=== PATIENT | male | born 1955 | race Caucasian/White ===

== ENCOUNTER 2024-11-01 16:55 | Inpatient (IN) | payer OTHER ==
[2024-11-01 19:50] VITALS: BMI 27.3
[2024-11-01] MEDS ORDERED: Ondansetron PF 4 MG/2 ML Vial IVP PRN (20:42)
[2024-11-01] MEDS ORDERED: Calcium Carbonate 500 MG ChewTAB PO PRN (20:42)
[2024-11-01] MEDS ORDERED: Ipratropium/Albuterol 3 ML NEB NEB PRN (20:44)
[2024-11-01 22:25] LABS: Hematocrit 34.9 % (42.0-52.0); Hemoglobin 11.8 g/dL (14.0-18.0); Mean Corpuscular HGB CONC 33.8 g/dL (32.0-36.0); Mean Corpuscular Hemoglobin 29.8 pg (27.0-31.0); Mean Corpuscular Volume 88.1 fL (78.0-98.0); Mean Platelet Volume 9.8 fL (7.4-10.4); Platelet Count 155 10x3/uL (130-400); RBC Distribution Width 13.6 % (11.5-14.5); Red Blood Cell (RBC) Count 3.96 mill/uL (4.70-6.10)
[2024-11-01] MEDS: Ondansetron ODT 4 MG TAB PO PRN (22:28)
[2024-11-01] MEDS: Famotidine/PF 20 mg/2ml Vial SLOW IVP SCH (22:28)
[2024-11-01] MEDS: Famotidine 20 MG TAB PO SCH (22:28)
[2024-11-01] MEDS: Doxycycline 100 MG CAP PO SCH (22:28)
[2024-11-01] MEDS ORDERED: Nicotine 14 MG PATCH TD PRN (22:29)
[2024-11-01 22:42] LABS: Anion Gap 13 mmol/L (10-20); BUN (Urea Nitrogen) 40 mg/dL (8.4-25.7); Calc. Creatinine Clearance 55 mL/min (70-130); Calcium 7.8 mg/dL (7.8-10.44); Carbon Dioxide 21 mmol/L (23-31); Chloride 107 mmol/L (98-107); Estimated GFR 54; Glucose 111 mg/dL (80-115); Potassium 3.8 mmol/L (3.5-5.1); Sodium 137 mmol/L (136-145)
[2024-11-01 22:44] LABS: Band 22 % (5-11); Hypochromia SLIGHT = 6-15 cells (100X) (0-5/hpf); Lymphocytes 2 % (21-51); Monocytes 1 % (0-10); Neutrophil 73 % (42-75); Plasma Cells 0 % (0-0); Platelet Adequacy Comment Appears Adequate; Reactive Lymphocytes 2 % (0-10); Total Cell Count 100
[2024-11-02 04:57] LABS: #Basophils 0.04 10x3/uL (0.0-0.2); %Basophils 0.3 % (0.0-1.0); %Eosinophils 0.5 % (0.0-10.0); %Lymphocytes 3.1 % (21.0-51.0); %Monocytes 4.1 % (0.0-10.0); %Neutrophils 89.1 % (42.0-75.0); Hematocrit 33.9 % (42.0-52.0); Hemoglobin 11.5 g/dL (14.0-18.0); Mean Corpuscular HGB CONC 33.9 g/dL (32.0-36.0); Mean Corpuscular Hemoglobin 29.8 pg (27.0-31.0); Mean Corpuscular Volume 87.8 fL (78.0-98.0); Mean Platelet Volume 9.7 fL (7.4-10.4); Platelet Count 142 10x3/uL (130-400); RBC Distribution Width 13.6 % (11.5-14.5); Red Blood Cell (RBC) Count 3.86 mill/uL (4.70-6.10)
[2024-11-02 05:17] LABS: ALT (SGPT) 20 U/L (Less than 45); AST (SGOT) 18 U/L (11-34); Albumin 2.8 g/dL (3.1-4.5); Alkaline Phosphatase 62 U/L (40-110); Anion Gap 12 mmol/L (10-20); BUN (Urea Nitrogen) 30 mg/dL (8.4-25.7); Bilirubin, Total 0.6 mg/dL (0.3-1.2); Calc. Creatinine Clearance 71 mL/min (70-130); Calcium 7.8 mg/dL (7.8-10.44); Carbon Dioxide 22 mmol/L (23-31); Chloride 107 mmol/L (98-107); Estimated GFR 74; Globulin 3.3 g/dL (2.4-3.5); Glucose 111 mg/dL (80-115); Potassium 3.9 mmol/L (3.5-5.1); Protein, Total 6.1 g/dL (5.8-8.1); Sodium 137 mmol/L (136-145)
[2024-11-02] MEDS: cefTRIAXone\\ROCEPHIN 1 GM in Sodium Chloride 0.9% 100 ML IVPB SCH (09:33)
[2024-11-02] MEDS: FLU (Fluad Triv) TS24-25 (65UP)/MF59C/PF 45 MCG/0.5 ML Syringe IM ONE (09:45)
[2024-11-02 10:23] VITALS: BMI 27.3
[2024-11-02] MEDS: predniSONE 20 MG TAB PO SCH (17:21)
[2024-11-02] MEDS: Sodium Chloride 0.9% 1,000 ML IV SCH (17:22)
[2024-11-03 04:22] LABS: #Basophils Less than 0.03 10x3/uL (0.0-0.2); #Eosinophils Less than 0.03 10x3/uL (0.0-0.7); %Basophils 0.2 % (0.0-1.0); %Lymphocytes 4.5 % (21.0-51.0); %Monocytes 3.3 % (0.0-10.0); %Neutrophils 91.3 % (42.0-75.0); Hematocrit 36.7 % (42.0-52.0); Hemoglobin 12.4 g/dL (14.0-18.0); Mean Corpuscular HGB CONC 33.8 g/dL (32.0-36.0); Mean Corpuscular Hemoglobin 29.5 pg (27.0-31.0); Mean Corpuscular Volume 87.4 fL (78.0-98.0); Mean Platelet Volume 10.1 fL (7.4-10.4); Platelet Count 193 10x3/uL (130-400); RBC Distribution Width 13.4 % (11.5-14.5)
[2024-11-03 05:22] LABS: Lactic Acid 2.43 mmol/L (0.50-2.20)
[2024-11-03 05:44] LABS: Anion Gap 16 mmol/L (10-20); BUN (Urea Nitrogen) 18 mg/dL (8.4-25.7); Calc. Creatinine Clearance 89 mL/min (70-130); Calcium 8.3 mg/dL (7.8-10.44); Carbon Dioxide 21 mmol/L (23-31); Chloride 107 mmol/L (98-107); Estimated GFR 95; Glucose 168 mg/dL (80-115); Sodium 140 mmol/L (136-145)
[2024-11-03] MEDS: Famotidine 20 MG TAB PO SCH (09:29)
[2024-11-03] MEDS: predniSONE 20 MG TAB PO SCH (09:29)
[2024-11-03] MEDS: Levothyroxine Sodium 50 MCG TAB PO SCH (09:29)
[2024-11-03 11:00] VITALS: BP 158/97; TEMP 97.8
[2024-11-03] MEDS: LevoFLOXacin 750 MG TAB PO SCH (11:40)
== END 2024-11-03 12:30 | disposition home or self-care (01) | DRG 871 ==
LOC: 2NO 16:55
PROVIDERS: ADMIT Student in an Organized Health Care Education/Training Program; ATTEND Internal Medicine
DX: A41.9 Sepsis, unspecified organism (principal); J18.9 Pneumonia, unspecified organism; J44.0 Chronic obstructive pulmonary disease with (acute) lower respiratory infection; N17.9 Acute kidney failure, unspecified; J44.1 Chronic obstructive pulmonary disease with (acute) exacerbation; E87.20 Acidosis, unspecified; F15.10 Other stimulant abuse, uncomplicated; E03.9 Hypothyroidism, unspecified; Z88.0 Allergy status to penicillin; Z85.46 Personal history of malignant neoplasm of prostate
CPT/HCPCS: 36415; 71045; 80048; 80053; 83605; 84145; 84443; 85025; 86141; 87633; J0696; J7030; J7512; Q0162